=== PATIENT | male | born 1955 | race Caucasian/White ===

== ENCOUNTER 2019-02-05 15:32 | Inpatient (IN) | payer MEDICAID ==
[2019-02-05 16:21] LABS: % BASOPHILS 1.1 % (0.0-2.0); % EOSINOPHILS 1.8 % (0.0-5.0); % LYMPHOCYTES 30.4 % (20.0-50.0); % NEUTROPHILS 60.7 % (40.0-80.0); BASOPHILE ABSOLUTE 0.1 Th/cumm (0-0.2); EOSINOPHILE ABSOLUTE 0.1 Th/cmm (0.1-0.4); HEMOGLOBIN 13.4 gm/dL (12-16); LYMPHOCYTE ABSOLUTE 2.1 Th/cmm (1.5-3.0); MEAN CELL VOLUME 93.3 fl (80-99); MEAN CORPUSCULAR HGB CONC 34.3 pg (28.0-36.0); MONOCYTE ABSOLUTE 0.4 Th/cmm (0.3-1.0); NEUTROPHILE ABSOLUTE 4.1 Th/cmm (1.8-8.0); PLATELET COUNT 163 Th/cmm (150-400); RED BLOOD COUNT 4.18 Mil/cmm (4.30-5.70); RED CELL DISTRIBUTION WIDTH 14.5 % (11.5-20.0); WHITE BLOOD COUNT 6.8 Th/cmm (4.8-10.8)
[2019-02-05 16:30] LABS: INR 0.94 (0.5-1.4)
[2019-02-05 16:34] LABS: ALB/GLOB RATIO 1.2 (1.0-1.8); ALBUMIN 3.8 gm/dL (4.2-5.5); ALKALINE PHOSPHATASE 78 U/L (34-104); ANION GAP 10.1 (7.0-16.0); BILIRUBIN,TOTAL 0.3 mg/dL (0.3-1.0); BUN - UREA NITROGEN 14 mg/dL (7-25); CALCIUM SERUM 9.6 mg/dL (8.6-10.3); CARBON DIOXIDE 27.8 mEq/L (21.0-31.0); CHLORIDE 102 mEq/L (98-107); CREATININE - SERUM 0.9 mg/dL (0.7-1.3); CREATININE KINASE 93 U/L (30-223); GFR AFRICAN-AMERICAN > 60.0 ml/min (>90); GFR NON AFRICAN-AMERICAN > 60.0 ml/min; GLUCOSE 123 mg/dL (70-105); POTASSIUM SERUM 3.9 mEq/L (3.5-5.1); SGOT 19 U/L (13-39); SGPT/ALT 22 U/L (7-52); SODIUM SERUM 136 mEq/L (136-145)
--- NOTE | 2019-02-05 16:59 | ED Physician Chart ---
ED Chief Complaint/HPI - Patient Information Date Seen:: 02/05/19 Time Seen:: 15:50 Chief Complaint:: Redness History of Present Illness:: onset x 3 days of left thigh redness and swelling; pt's last tetanus shot: > 5 years; pt denies trauma, H/As, neck pain, cough, C/P, SOB, Abd. Pain, or urinary s/s Allergies:: Allergies Allergy/AdvReac Type Severity Reaction Status Date / Time No Known Allergies Allergy Verified 02/05/19 15:50 Vitals:: Vital Signs - 8 hr 02/05/19 02/05/19 15:50 16:19 Temp 97.8 F 97.8 F HR 76 72 RR 16 19 BP 124/87 110/82 O2 Sat % 97 97 Historian:: Patient, EMS Review:: Nurse's Note Reviewed, Old Chart Reviewed, EMS run form Reviewed ED Review of Systems - Review of Systems General/Constitutional: No fever, No chills, No weight loss, No weakness, No diaphoresis, No edema, No loss of appetite Skin: No skin lesions, No rash, No bruising Head: No headache, No light-headedness Eyes: No loss of vision, No pain, No diplopia ENT: No earache, No nasal drainage, No sore throat, No tinnitus Neck: No neck pain, No swelling, No thyromegaly, No stiffness, No mass noted Cardio Vascular: No chest pain, No palpitations, No PND, No orthopnea, No edema Pulmonary: No SOB, No cough, No sputum, No wheezing GI: No nausea, No vomiting, No diarrhea, No pain, No melena, No hematochezia, No constipation, No hematemesis G/U: No dysuria, No frequency, No hematuria, No nacturia Musculoskeletal: No bone or joint pain, No back pain, No muscle pain Endocrine: No polyuria, No polydipsia Psychiatric: No prior psych history, No depression, No anxiety, No suicidal ideation, No homicidal ideation, No auditory hallucination, No visual hallucination Hematopoietic: No bruising, No lymphadenopathy Allergic/Immuno: No urticaria, No angioedema Neurological: No syncope, No focal symptoms, No weakness, No paresthesia, No headache, No seizure, No dizziness, No confusion, No vertigo ED Past Medical History - Past Medical History Obtainable: Yes Past Medical History: HTN, Asthma/COPD, Dyslipidemia, PUD/GERD, Thyroid disorder Family History: HTN Social History: Non Smoker, No Alcohol, No Drug Use, Single, Care Facility Surgical History: None Psychiatricy History: None Medication: Reviewed Family Medical History - Family Member Mother History Unknown: Yes ED Physical Exam - Physical Examination General/Constitutional: Awake, Well-developed, well-nourished, Alert, No distress, GCS 15, Non-toxic appearing, Ambulatory Head: Atraumatic Eyes: Lids, conjuctiva normal, PERRL, EOMI Skin: Nl inspection, No rash, No skin lesions, No ecchymosis, Well hydrated, No lymphadenopathy Other Skin comments:: + Left Thigh Abscess, Ulceration, and Cellulitis; good NV functions; no FBs ENMT: External ears, nose nl, TM canals nl, Nasal exam nl, Lips, teeth, gums nl , Oropharynx nl, Tonsils nl Neck: Nontender, Full ROM w/o pain, No JVD, No nuchal rigidity, No bruit, No mass, No stridor Respiratory: Nl effort/Exclusion, Clear to Auscultation, No Wheeze/Rhonchi/Rales Cardio Vascular: RRR, No murmur, gallop, rubs, NL S1 S2, Carotid/Femoral/Distal pulses equal bilaterally GI: No tenderness/rebounding/guarding, No organomegaly, No hernia, Normal BS's, Nondistended, No mass/bruits, No McBurney tenderness, Rectum exam nl : No CVA tenderness Extremities: No tenderness or effusion, Full ROM, normal strength in all extremities, No edema, Normal digits & nails Neuro/Psych: Alert/oriented, DTR's symmetric, Normal sensory exam, Normal motor strength, Judgement/insight normal, Mood normal, Normal gait, No focal deficits Misc: Normal back, No paraspinal tenderness ED Labs/Radiology/EKG Results - Lab Results Results: Laboratory Tests 02/05/19 02/05/19 02/05/19 16:10 16:10 16:10 WBC 6.8 RBC 4.18 L Hgb 13.4 Hct 39.0 L MCV 93.3 MCH 32.0 H MCHC Differential 34.3 RDW 14.5 Plt Count 163 MPV 8.2 Neutrophils % 60.7 Lymphocytes % 30.4 Monocytes % 6.0 Eosinophils % 1.8 Basophils % 1.1 PT 9.8 INR 0.94 PTT (Actin FS) 26.0 Sodium 136 Potassium 3.9 Chloride 102 Carbon Dioxide 27.8 Anion Gap 10.1 BUN 14 Creatinine 0.9 Est GFR ( Amer) > 60.0 Est GFR (Non-Af Amer) > 60.0 BUN/Creatinine Ratio 15.6 Glucose 123 H Whole Bld Lactic Acid Calcium 9.6 Total Bilirubin 0.3 AST 19 ALT 22 Alkaline Phosphatase 78 Creatine Kinase 93 Total Protein 7.0 Albumin 3.8 L Globulin 3.2 Albumin/Globulin Ratio 1.2 02/05/19 16:10 WBC RBC Hgb Hct MCV MCH MCHC Differential RDW Plt Count MPV Neutrophils % Lymphocytes % Monocytes % Eosinophils % Basophils % PT INR PTT (Actin FS) Sodium Potassium Chloride Carbon Dioxide Anion Gap BUN Creatinine Est GFR ( Amer) Est GFR (Non-Af Amer) BUN/Creatinine Ratio Glucose Whole Bld Lactic Acid 1.46 Calcium Total Bilirubin AST ALT Alkaline Phosphatase Creatine Kinase Total Protein Albumin Globulin Albumin/Globulin Ratio Comments:: Reviewed ED Septic Shock - . Is Septic Shock (SBP<90, OR Lactate>4 mmol\L) present?: No - <6hrs of presentation: Vital Signs: Vital Signs - 8 hr 02/05/19 02/05/19 15:50 16:19 Temp 97.8 F 97.8 F HR 76 72 RR 16 19 BP 124/87 110/82 O2 Sat % 97 97 ED Reassessment (Disposition) - Reassessment Reassessment Condition:: Improved - Diagnosis Diagnosis:: Left Thigh Abscess, Ulcerations; Cellulitis; Hypoalbuminemia; HTN; HLD; Sepsis - Aftercare/Follow up Instructions Aftercare/Follow-Up Instructions:: Counseled pt regarding lab results/diagnosis & need follow up, Counseled pt & family regarding lab results/diagnosis & need follow up - Patient Disposition Discharge/Transfer:: Acute Care w/in this hosp Accepting Physician:: Dr. Mathews Time Called:: 1629 Time Responded:: 16:30 Admitted to:: Med/Surg Spoke to:: Dr. Mathews Admitting Medical Physician:: Dr. Mathews Condition at Disposition:: Stable, Improved
[2019-02-05 19:23] VITALS: BP 119/78
[2019-02-05] MEDS ORDERED: Acetaminophen 500 MG TAB PO PRN (21:08)
[2019-02-06 04:28] LABS: EOSINOPHILE ABSOLUTE 0.2 Th/cmm (0.1-0.4); MONOCYTE ABSOLUTE 0.4 Th/cmm (0.3-1.0); PLATELET COUNT 148 Th/cmm (150-400)
[2019-02-06 04:45] LABS: % BASOPHILS 1.2 % (0.0-2.0); % EOSINOPHILS 2.8 % (0.0-5.0); % LYMPHOCYTES 34.6 % (20.0-50.0); % NEUTROPHILS 55.4 % (40.0-80.0); BASOPHILE ABSOLUTE 0.1 Th/cumm (0-0.2); HEMATOCRIT 39.6 % (41.0-60); HEMOGLOBIN 13.2 gm/dL (12-16); LYMPHOCYTE ABSOLUTE 2.1 Th/cmm (1.5-3.0); MEAN CELL VOLUME 95.1 fl (80-99); MEAN CORPUSCULAR HEMOGLOBIN 31.7 pg (26.0-30.0); MEAN CORPUSCULAR HGB CONC 33.4 pg (28.0-36.0); NEUTROPHILE ABSOLUTE 3.4 Th/cmm (1.8-8.0); RED BLOOD COUNT 4.16 Mil/cmm (4.30-5.70); RED CELL DISTRIBUTION WIDTH 14.8 % (11.5-20.0); WHITE BLOOD COUNT 6.2 Th/cmm (4.8-10.8)
[2019-02-06 05:15] LABS: ALB/GLOB RATIO 1.2 (1.0-1.8); ALBUMIN 3.4 gm/dL (4.2-5.5); ALKALINE PHOSPHATASE 80 U/L (34-104); ANION GAP 11.8 (7.0-16.0); BILIRUBIN,TOTAL 0.3 mg/dL (0.3-1.0); BUN - UREA NITROGEN 14 mg/dL (7-25); CALCIUM SERUM 9.2 mg/dL (8.6-10.3); CARBON DIOXIDE 25.2 mEq/L (21.0-31.0); CHLORIDE 107 mEq/L (98-107); CREATININE - SERUM 0.8 mg/dL (0.7-1.3); GFR AFRICAN-AMERICAN > 60.0 ml/min (>90); GFR NON AFRICAN-AMERICAN > 60.0 ml/min; GLUCOSE 95 mg/dL (70-105); SGOT 18 U/L (13-39); SGPT/ALT 20 U/L (7-52); SODIUM SERUM 140 mEq/L (136-145); TOTAL PROTEIN,SERUM 6.3 gm/dL (6.0-8.3)
[2019-02-06] MEDS: Atorvastatin Calcium 10 MG TAB PO SCH (09:07)
[2019-02-06] MEDS: Calcitonin (Salmon) 200 Iu/Actuation 3.7mL NS SCH (09:08)
[2019-02-06] MEDS: Levothyroxine 0.1 Mg Tab PO SCH (09:13)
[2019-02-06] MEDS: Pantoprazole 40 mg EC Tab PO SCH (09:13)
--- NOTE | 2019-02-06 10:00 | Consultation ---
Consult Note - Consult Note Service Date: 02/06/19 Referring Physician: Srinivas Mathews Consult Note: PHYSICIAN Consultation Note: Date of Admission: 02/05/19 Purpose of Consultation: Left thigh abscess Chief Complaint: Patient KEYLA BURK was admitted to location Medical/ Surgical Unit I with LEFT SKIN ABSCESS. History of Present Illness: 63-year-old male with a past medical history of Hypertension, asthma, COPD, dyslipidemia, peptic ulcer disease, GERD, thyroid disorders presented to the ER for left thigh painful swelling for last 3 days. On initial evaluation, his temperature was 97.8F and WBC count was 6800. Vancomycin IV was started. ID consult was called for further antibiotic management. Surgical consultation was called Past Medical History: Hypertension, asthma, COPD, dyslipidemia, peptic ulcer disease, GERD, thyroid disorders. Family History: HTN. Social History: Non Smoker, No Alcohol, No Drug Use, Single, Care Facility. Surgical History: None. Psychiatricy History: None. Medication: Reviewed Allergies Allergy/AdvReac Type Severity Reaction Status Date / Time No Known Allergies Allergy Verified 02/05/19 15:50 Vital Signs Temp 96.5 F 02/06/19 08:00 Pulse 64 02/06/19 09:07 Resp 19 02/06/19 08:00 BP 111/73 02/06/19 09:07 Pulse Ox 93 02/06/19 08:00 Intake & Output 02/05/19 02/06/19 02/06/19 18:59 06:59 18:59 Intake Total 200 120 Output Total 0 Balance 200 120 Weight (lbs) 76.657 kg 76.657 kg Intake: Oral 200 120 Output: Stool 0 Other: # Voids 2 # Bowel Movements 0 Stool Characteristics Soft Formed Weight Source Bedscale Bedscale Laboratory Results - last 24 hr 02/05/19 02/05/19 02/05/19 16:10 16:10 16:10 WBC 6.8 RBC 4.18 L Hgb 13.4 Hct 39.0 L MCV 93.3 MCH 32.0 H MCHC Differential 34.3 RDW 14.5 Plt Count 163 MPV 8.2 Neutrophils % 60.7 Lymphocytes % 30.4 Monocytes % 6.0 Eosinophils % 1.8 Basophils % 1.1 PT 9.8 INR 0.94 PTT (Actin FS) 26.0 Sodium 136 Potassium 3.9 Chloride 102 Carbon Dioxide 27.8 Anion Gap 10.1 BUN 14 Creatinine 0.9 Est GFR ( Amer) > 60.0 Est GFR (Non-Af Amer) > 60.0 BUN/Creatinine Ratio 15.6 Glucose 123 H Whole Bld Lactic Acid Calcium 9.6 Total Bilirubin 0.3 AST 19 ALT 22 Alkaline Phosphatase 78 Creatine Kinase 93 Troponin I Total Protein 7.0 Albumin 3.8 L Globulin 3.2 Albumin/Globulin Ratio 1.2 02/05/19 02/06/19 02/06/19 16:10 04:10 04:10 WBC 6.2 RBC 4.16 L Hgb 13.2 Hct 39.6 L MCV 95.1 MCH 31.7 H MCHC Differential 33.4 RDW 14.8 Plt Count 148 L MPV 8.3 Neutrophils % 55.4 Lymphocytes % 34.6 Monocytes % 6.0 Eosinophils % 2.8 Basophils % 1.2 PT INR PTT (Actin FS) Sodium 140 Potassium 4.0 Chloride 107 Carbon Dioxide 25.2 Anion Gap 11.8 BUN 14 Creatinine 0.8 Est GFR ( Amer) > 60.0 Est GFR (Non-Af Amer) > 60.0 BUN/Creatinine Ratio 17.5 Glucose 95 Whole Bld Lactic Acid 1.46 Calcium 9.2 Total Bilirubin 0.3 AST 18 ALT 20 Alkaline Phosphatase 80 Creatine Kinase Troponin I 0.01 Total Protein 6.3 Albumin 3.4 L Globulin 2.9 Albumin/Globulin Ratio 1.2 Home Medication Medication Instructions Recorded Type Acetaminophen [Tylenol Extra 2 tab PO Q6H PRN 02/05/19 History Strength] Albuterol Sulfate [Proair 2 puff IH TID 02/05/19 History Respiclick] Aspirin [Lo-Dose Aspirin EC] 81 mg PO DAILY 02/05/19 History Atorvastatin Calcium [Lipitor] 10 mg PO DAILY 02/05/19 History Calcitonin ([place]) [Miacalcin] 200 iu NS DAILY 02/05/19 History Calcium Carbonate [Oyster Shell 500 mg PO BID 02/05/19 History Calcium] Ipratropium [place] [Atrovent Hfa] 2 puff INH QID 02/05/19 History Levothyroxine Sodium [Levoxyl] 100 mcg PO DAILY 02/05/19 History Metoprolol Tartrate [Lopressor] 25 mg PO BID 02/05/19 History Naproxen 500 mg PO Q12H PRN 02/05/19 History OLANZapine [ZyPREXA] 2 tab PO HS 02/05/19 History Pantoprazole Sodium [Protonix] 40 mg PO DAILY 02/05/19 History Thiamine [Vitamin B1] 100 mg PO DAILY 02/05/19 History Current Medications Generic Name Dose Route Start Last Admin Trade Name Freq PRN Reason Stop Dose Admin Acetaminophen 1,000 mg 02/05/19 21:08 Tylenol Extra Strength PO 04/06/19 21:07 Q6H PRN Pain (Moderate) Albuterol Sulfate 2.5 mg 02/06/19 15:00 Albuterol 2.5mg/3ml Neb Ud HHN 04/07/19 14:59 TIDRT TOMMY Aspirin 81 mg 02/06/19 09:00 02/06/19 09:07 Ecotrin PO 04/07/19 08:59 81 mg DAILY TOMMY Administration Atorvastatin Calcium 10 mg 02/06/19 09:00 02/06/19 09:07 Lipitor PO 04/07/19 08:59 10 mg DAILY TOMMY Administration Protocol Calcitonin [place] 200 iu 02/06/19 09:00 02/06/19 09:08 Miacalcin NS 04/07/19 08:59 200 iu DAILY TOMMY Administration Calcium Carbonate 500 mg 02/06/19 09:00 02/06/19 09:07 Os-Abner PO 04/07/19 08:59 500 mg BID TOMMY Administration Vancomycin HCl 1.25 gm/ Sodium 250 mls @ 165 mls/hr 02/06/19 09:00 02/06/19 09:15 Chloride IV 04/07/19 08:59 165 mls/hr Q12H TOMMY Administration Ipratropium [place] 0.5 mg 02/06/19 11:00 Atrovent Neb 0.5mg/2.5ml N 04/07/19 10:59 QIDRT TOMMY Levothyroxine Sodium 0.1 mg 02/06/19 07:30 02/06/19 09:13 Synthroid PO 04/07/19 07:29 0.1 mg QDAC TOMMY Administration Metoprolol Tartrate 25 mg 02/06/19 09:00 02/06/19 09:07 Lopressor PO 04/07/19 08:59 25 mg BID TOMMY Administration Miscellaneous 1 ea 02/06/19 09:00 Vancomycin Iv Per Pharmacy 04/07/19 08:59 DAILY TOMMY Naproxen 500 mg 02/05/19 21:09 Naprosyn PO 04/06/19 21:08 Q12H PRN Pain (Mild) Olanzapine 30 mg 02/06/19 21:00 Zyprexa PO 04/07/19 20:59 HS TOMMY Protocol Pantoprazole Sodium 40 mg 02/06/19 07:30 02/06/19 09:13 Protonix PO 04/07/19 07:29 40 mg QDAC TOMMY Administration Thiamine HCl 100 mg 02/06/19 09:00 02/06/19 09:07 Vitamin B1 PO 04/07/19 08:59 100 mg DAILY TOMMY Administration Review of Systems: A 12 point ROS was reviewed with the pertinent positive and negatives noted in the HPI. General/Constitutional: No fever, No chills, No weight loss, No weakness, No diaphoresis, No edema, No loss of appetite Skin: No skin lesions, No rash, No bruising Head: No headache, No light-headedness Eyes: No loss of vision, No pain, No diplopia ENT: No earache, No nasal drainage, No sore throat, No tinnitus Neck: No neck pain, No swelling, No thyromegaly, No stiffness, No mass noted Cardio Vascular: No chest pain, No palpitations, No PND, No orthopnea, No edema Pulmonary: No SOB, No cough, No sputum, No wheezing GI: No nausea, No vomiting, No diarrhea, No pain, No melena, No hematochezia, No constipation, No hematemesis G/U: No dysuria, No frequency, No hematuria, No nacturia Musculoskeletal: No bone or joint pain, No back pain, No muscle pain,. This painful abscess in back of the left thigh. Endocrine: No polyuria, No polydipsia Psychiatric: No prior psych history, No depression, No anxiety, No suicidal ideation, No homicidal ideation, No auditory hallucination, No visual hallucination Hematopoietic: No bruising, No lymphadenopathy Allergic/Immuno: No urticaria, No angioedema Neurological: No syncope, No focal symptoms, No weakness, No paresthesia, No headache, No seizure, No dizziness, No confusion, No vertigo Physical Exam: General: Comfortable and not in acute distress. HEENT: Head: Normocephalic, atraumatic. Oral cavity: Moist, pink tongue. Eyes : No pedal, no icterus. The pupils. EOMI. Neck: Supple, no JVD. No use of accessory neck muscles. Cardio: S1 and S2 within normal limits. No murmur no gallop. Respiratory: Vesicular breath sound. No crackles or wheezing no rhonchi. Abdominal: Soft, nontender, nondistended, bowel sounds present. Genital/Urinary: Deferred. Extremities: No cyanosis no clubbing no edema. Left thigh: Posteriorly, just distal to gluteal area, there is a large pustule with open wound draining pus and has necrotic slough with surrounding painful erythema. Neurological: Alert, awake and oriented 3. Assessment: 1. Left thigh abscess. Cellulitis. Likely MRSA infection. 2. Hypertension. 3. Asthma, COPD. 4. Dyslipidemia. 5. Peptic ulcer disease, GERD. 6. Thyroid disorder. Hypothyroidism. Plan: Continue vancomycin IV. Surgical consultation called. Thank you, Dr. Mathews, for involving me in taking care of this patient. Signed, Samson Govea M.D. [id number]
[2019-02-06] MEDS ORDERED: Ipratropium Neb 0.5 mg/2.5 mL UD HHN SCH (11:00)
[2019-02-06 11:13] LABS: URINE SOURCE CLEAN C
[2019-02-06 11:23] LABS: URINE BILIRUBIN NEGATIVE (NEGATIVE); URINE BLOOD NEGATIVE (NEGATIVE); URINE GLUCOSE (UA) NEGATIVE (NEGATIVE); URINE KETONE NEGATIVE (NEGATIVE); URINE LEUKOCYTE ESTERASE NEGATIVE (NEGATIVE); URINE NITRATE NEGATIVE (NEGATIVE); URINE PH 6.5 (4.6 - 8.0); URINE PROTEIN NEGATIVE (NEGATIVE); URINE UROBILINOGEN 0.2 E.U./dL (0.2 - 1.0)
[2019-02-06 11:28] LABS: URINE CLARITY CLEAR (CLEAR); URINE COLOR YELLOW; URINE MICROSCOPIC INDICATED? NO
--- NOTE | 2019-02-06 11:41 | History and Physical ---
History of Present Illness - HPI Chief Complaint: 63 y/o male patient was brought into ER due to Left thigh abscess. HPI: 63 y/o male patient was admitted to [facility] due to Left thigh abscess. Patient has history for Hypertension, Asthma, Copd, Dyslipidemia, Peptic ulcer disease, Gerd and Thyroid disorder. Patient had an ER assessment and a complete workup was done. Patient was diagnosed with Left thigh abcess. Cellulitis, likely MRSA infection , Hypertension, Asthma, Copd, Dyslipidemia, Peptic ulcer disease, Gerd, Thyroid disorder and Hypothyroidism. Patient will have an ID consult for further Antibiotic management and Surgical consult was also ordered. I will follow, treat and monitor patient. Patient will continue Vancomycin IV and current treatment plan an ordered. Vital Signs: Last Vital Signs Temp 96.5 F 02/06/19 08:00 Pulse 64 02/06/19 09:07 Resp 19 02/06/19 08:00 BP 111/73 02/06/19 09:07 Pulse Ox 93 02/06/19 08:00 Past Medical History Cardiovascular: Report: HTN Pulmonary: Report: Asthma, COPD [employer]UM [employer]INTER: Report: No Pertinent Hx GI: Report: GERD, Peptic Ulcer Psych: Report: No Pertinent Hx Musculoskeletal: Report: Other (Left thigh; Posteriorly, just distal to gluteal area there is a large pustule with open wound draining pus and has necrotic slough with surrounding painful erythema.) Rheumatologic: Report: No pertinent Hx Infectious Disease: Report: No Pertinent Hx Renal/: Report: No Pertinent Hx Endocrine: Report: Hypothyroidism Dermatology: Report: Cellulitis - Past Surgical History Past Surgical History: No pertinent Hx Family Medical History - Family Member Mother History Unknown: Yes Social History Smoke: No Alcohol: None Drugs: None Lives: [place] Domestic Violence: Negative Health Maintenance Health Maintenance: Other (see orders.) - Medications Home Medications: Home Medication Medication Instructions Recorded Type Acetaminophen [Tylenol Extra 2 tab PO Q6H PRN 02/05/19 History Strength] Albuterol Sulfate [Proair 2 puff IH TID 02/05/19 History Respiclick] Aspirin [Lo-Dose Aspirin EC] 81 mg PO DAILY 02/05/19 History Atorvastatin Calcium [Lipitor] 10 mg PO DAILY 02/05/19 History Calcitonin ([place]) [Miacalcin] 200 iu NS DAILY 02/05/19 History Calcium Carbonate [Oyster Shell 500 mg PO BID 02/05/19 History Calcium] Ipratropium [place] [Atrovent Hfa] 2 puff INH QID 02/05/19 History Levothyroxine Sodium [Levoxyl] 100 mcg PO DAILY 02/05/19 History Metoprolol Tartrate [Lopressor] 25 mg PO BID 02/05/19 History Naproxen 500 mg PO Q12H PRN 02/05/19 History OLANZapine [ZyPREXA] 2 tab PO HS 02/05/19 History Pantoprazole Sodium [Protonix] 40 mg PO DAILY 02/05/19 History Thiamine [Vitamin B1] 100 mg PO DAILY 02/05/19 History Other Medications: Please see medication reconciliation sheet. - Allergies Allergies/Adverse Reactions: Allergies Allergy/AdvReac Type Severity Reaction Status Date / Time No Known Allergies Allergy Verified 02/05/19 15:50 Review of Systems - Review of Systems Review of Systems: 63 y/o male patient has cellulitus of left thigh. Constitutional: Report: Weakness Eyes: Report: No Significant ENT: Report: No Significant Respiratory: Report: No Significant Cardiovascular: Report: No Significant Gastrointestinal: Report: No Significant Genitourinary: Report: No Significant Musculoskeletal: Report: Other (left thigh pain/cellultis.) Skin: Report: Other (Left thigh cellulitis.) Neurological: Report: Weakness Physical Exam - Physical Exam HEENT: Report: Ears Nose Throat within normal limits Neck: Report: Within normal limits Cardiovascular Systems: Report: +s1/s2 noted, Regular, Rate and Rhythm Respiratory: Report: Breath Sounds are within normal limits Abdomen: Report: Non-tender to palpation Back: Report: Inspection of back is within normal limits. Extremities: Report: Other (Left thgh abcess/cellulitis/pain.) Skin: Report: A wound was noted Neuro/Psych: Report: Mood affect is within normal limits - Lab Results All Lab Results last 24 hours: Laboratory Results - last 24 hr 02/05/19 02/05/19 02/05/19 16:10 16:10 16:10 WBC 6.8 RBC 4.18 L Hgb 13.4 Hct 39.0 L MCV 93.3 MCH 32.0 H MCHC Differential 34.3 RDW 14.5 Plt Count 163 MPV 8.2 Neutrophils % 60.7 Lymphocytes % 30.4 Monocytes % 6.0 Eosinophils % 1.8 Basophils % 1.1 PT 9.8 INR 0.94 PTT (Actin FS) 26.0 Sodium 136 Potassium 3.9 Chloride 102 Carbon Dioxide 27.8 Anion Gap 10.1 BUN 14 Creatinine 0.9 Est GFR ( Amer) > 60.0 Est GFR (Non-Af Amer) > 60.0 BUN/Creatinine Ratio 15.6 Glucose 123 H Whole Bld Lactic Acid Calcium 9.6 Total Bilirubin 0.3 AST 19 ALT 22 Alkaline Phosphatase 78 Creatine Kinase 93 Troponin I Total Protein 7.0 Albumin 3.8 L Globulin 3.2 Albumin/Globulin Ratio 1.2 Urine Source Urine Color Urine Clarity Urine pH Ur Specific [place] Urine Protein Urine Glucose (UA) Urine Ketones Urine Blood Urine Nitrate Urine Bilirubin Urine Urobilinogen Ur Leukocyte Esterase 02/05/19 02/06/19 02/06/19 16:10 04:10 04:10 WBC 6.2 RBC 4.16 L Hgb 13.2 Hct 39.6 L MCV 95.1 MCH 31.7 H MCHC Differential 33.4 RDW 14.8 Plt Count 148 L MPV 8.3 Neutrophils % 55.4 Lymphocytes % 34.6 Monocytes % 6.0 Eosinophils % 2.8 Basophils % 1.2 PT INR PTT (Actin FS) Sodium 140 Potassium 4.0 Chloride 107 Carbon Dioxide 25.2 Anion Gap 11.8 BUN 14 Creatinine 0.8 Est GFR ( Amer) > 60.0 Est GFR (Non-Af Amer) > 60.0 BUN/Creatinine Ratio 17.5 Glucose 95 Whole Bld Lactic Acid 1.46 Calcium 9.2 Total Bilirubin 0.3 AST 18 ALT 20 Alkaline Phosphatase 80 Creatine Kinase Troponin I 0.01 Total Protein 6.3 Albumin 3.4 L Globulin 2.9 Albumin/Globulin Ratio 1.2 Urine Source Urine Color Urine Clarity Urine pH Ur Specific [place] Urine Protein Urine Glucose (UA) Urine Ketones Urine Blood Urine Nitrate Urine Bilirubin Urine Urobilinogen Ur Leukocyte Esterase 02/06/19 10:30 WBC RBC Hgb Hct MCV MCH MCHC Differential RDW Plt Count MPV Neutrophils % Lymphocytes % Monocytes % Eosinophils % Basophils % PT INR PTT (Actin FS) Sodium Potassium Chloride Carbon Dioxide Anion Gap BUN Creatinine Est GFR ( Amer) Est GFR (Non-Af Amer) BUN/Creatinine Ratio Glucose Whole Bld Lactic Acid Calcium Total Bilirubin AST ALT Alkaline Phosphatase Creatine Kinase Troponin I Total Protein Albumin Globulin Albumin/Globulin Ratio Urine Source CLEAN C Urine Color YELLOW Urine Clarity CLEAR Urine pH 6.5 Ur Specific [place] 1.015 Urine Protein NEGATIVE Urine Glucose (UA) NEGATIVE Urine Ketones NEGATIVE Urine Blood NEGATIVE Urine Nitrate NEGATIVE Urine Bilirubin NEGATIVE Urine Urobilinogen 0.2 Ur Leukocyte Esterase NEGATIVE - Assessment Assessment: Left thigh abscess. Cellulitis, likely MRSA infection. Hypertension. Asthma. Copd. Dyslipidemia. Peptic ulcer disease. Gerd. Thyroid disorder. Hypothyroidism. - Plan Plan: Continuation of care. ID consult and Surgical consult. Monitor Labs. Continue present meds as directed. Monitor vitals, Continue BP meds as directed. Monitor Diet/Nutritional support. Pain Management. Local skin care and Wound care. Physical therapy. Occupational therapy. Fall precaution, frequent nursing rounds, and as needed restraints to prevent fall. Safety precaution. Supportive care. Continue collaborating with consulting specialists, case management and nursing team. Will Monitor patient and continue current treatment plan as ordered.
[2019-02-06] MEDS ORDERED: Albuterol Nebulizer 2.5mg/3mL HHN SCH (15:00)
--- NOTE | 2019-02-06 22:38 | Consultation ---
Consult Note - Consult Note Service Date: 02/06/19 Referring Physician: Srinivas Mathews Consult Note: PHYSICIAN Consultation Note: Date of Admission: 02/05/19 Purpose of Consultation: Chief Complaint: History of Present Illness: Patient KEYLA BURK was admitted to [facility] I with LEFT SKIN ABSCESS. Past Medical History: Allergies Allergy/AdvReac Type Severity Reaction Status Date / Time No Known Allergies Allergy Verified 02/05/19 15:50 Vital Signs Temp 97.7 F 02/06/19 20:00 Pulse 56 02/06/19 20:00 Resp 20 02/06/19 20:00 BP 114/73 02/06/19 20:00 Pulse Ox 97 02/06/19 20:00 Intake & Output 02/06/19 02/06/19 02/07/19 06:59 18:59 06:59 Intake Total 120 750 Balance 120 750 Weight (lbs) 169 lb 169 lb Intake: Intake, IV Amount 250 Vancomycin HCl 1.25 gm In 250 Sodium Chloride 0.9% 250 ml @ 165 mls/hr IV Q12H [facility] Rx#:[id number] Oral 120 500 Other: # Voids 2 3 # Bowel Movements 0 1 Stool Characteristics Soft Soft Formed Formed [facility] Results - last 24 hr 02/06/19 02/06/19 02/06/19 04:10 04:10 10:30 WBC 6.2 RBC 4.16 L Hgb 13.2 Hct 39.6 L MCV 95.1 MCH 31.7 H MCHC Differential 33.4 RDW 14.8 Plt Count 148 L MPV 8.3 Neutrophils % 55.4 Lymphocytes % 34.6 Monocytes % 6.0 Eosinophils % 2.8 Basophils % 1.2 Sodium 140 Potassium 4.0 Chloride 107 Carbon Dioxide 25.2 Anion Gap 11.8 BUN 14 Creatinine 0.8 Est GFR ( Amer) > 60.0 Est GFR (Non-Af Amer) > 60.0 BUN/Creatinine Ratio 17.5 Glucose 95 Calcium 9.2 Total Bilirubin 0.3 AST 18 ALT 20 Alkaline Phosphatase 80 Total Protein 6.3 Albumin 3.4 L Globulin 2.9 Albumin/Globulin Ratio 1.2 Urine Source CLEAN C Urine Color YELLOW Urine Clarity CLEAR Urine pH 6.5 Ur Specific [place] 1.015 Urine Protein NEGATIVE Urine Glucose (UA) NEGATIVE Urine Ketones NEGATIVE Urine Blood NEGATIVE Urine Nitrate NEGATIVE Urine Bilirubin NEGATIVE Urine Urobilinogen 0.2 Ur Leukocyte Esterase NEGATIVE Home Medication Medication Instructions Recorded Type Acetaminophen [Tylenol Extra 2 tab PO Q6H PRN 02/05/19 History Strength] Albuterol Sulfate [Proair 2 puff IH TID 02/05/19 History Respiclick] Aspirin [Lo-Dose Aspirin EC] 81 mg PO DAILY 02/05/19 History Atorvastatin Calcium [Lipitor] 10 mg PO DAILY 02/05/19 History Calcitonin ([place]) [Miacalcin] 200 iu NS DAILY 02/05/19 History Calcium Carbonate [Oyster [place] 500 mg PO BID 02/05/19 History Calcium] Ipratropium [place] [Atrovent Hfa] 2 puff INH QID 02/05/19 History Levothyroxine Sodium [Levoxyl] 100 mcg PO DAILY 02/05/19 History Metoprolol Tartrate [Lopressor] 25 mg PO BID 02/05/19 History Naproxen 500 mg PO Q12H PRN 02/05/19 History OLANZapine [ZyPREXA] 2 tab PO HS 02/05/19 History Pantoprazole Sodium [Protonix] 40 mg PO DAILY 02/05/19 History Thiamine [Vitamin B1] 100 mg PO DAILY 02/05/19 History Current Medications Generic Name Dose Route Start Last Admin Trade Name Binq PRN Reason Stop Dose Admin Acetaminophen 1,000 mg 02/05/19 21:08 Tylenol Extra Strength PO 04/06/19 21:07 Q6H PRN Pain (Moderate) Albuterol Sulfate 2.5 mg 02/06/19 15:00 Albuterol 2.5mg/3ml Neb Ud HHN 04/07/19 14:59 TIDRT TOMMY Aspirin 81 mg 02/06/19 09:00 02/06/19 09:07 Ecotrin PO 04/07/19 08:59 81 mg DAILY TOMMY Administration Atorvastatin Calcium 10 mg 02/06/19 09:00 02/06/19 09:07 Lipitor PO 04/07/19 08:59 10 mg DAILY TOMMY Administration Protocol Calcitonin [place] 200 iu 02/06/19 09:00 02/06/19 09:08 Miacalcin NS 04/07/19 08:59 200 iu DAILY TOMMY Administration Calcium Carbonate 500 mg 02/06/19 09:00 02/06/19 17:26 Os-Abner PO 04/07/19 08:59 500 mg BID TOMMY Administration Vancomycin HCl 1.25 gm/ Sodium 250 mls @ 165 mls/hr 02/06/19 09:00 02/06/19 21:33 Chloride IV 04/07/19 08:59 165 mls/hr Q12H TOMMY Administration Ipratropium [place] 0.5 mg 02/06/19 11:00 Atrovent Neb 0.5mg/2.5ml HHN 04/07/19 10:59 QIDRT TOMMY Levothyroxine Sodium 0.1 mg 02/06/19 07:30 02/06/19 09:13 Synthroid PO 04/07/19 07:29 0.1 mg QDAC TOMMY Administration Metoprolol Tartrate 25 mg 02/06/19 09:00 02/06/19 17:26 Lopressor PO 04/07/19 08:59 25 mg BID TOMMY Administration Miscellaneous 1 ea 02/06/19 09:00 Vancomycin Iv Per Pharmacy 04/07/19 08:59 DAILY TOMMY Naproxen 500 mg 02/05/19 21:09 Naprosyn PO 04/06/19 21:08 Q12H PRN Pain (Mild) Olanzapine 30 mg 02/06/19 21:00 Zyprexa PO 04/07/19 20:59 HS TOMMY Protocol Pantoprazole Sodium 40 mg 02/06/19 07:30 02/06/19 09:13 Protonix PO 04/07/19 07:29 40 mg QDAC TOMMY Administration Thiamine HCl 100 mg 02/06/19 09:00 02/06/19 09:07 Vitamin B1 PO 04/07/19 08:59 100 mg DAILY TOMMY Administration Wound Care/Dressing Products 1 appl 02/07/19 09:00 Silvasorb TP 04/08/19 08:59 DAILY TOMMY Review of Systems: A 12 point ROS was reviewed with the pertinent positive and negatives noted in the HPI. Social History Smoking Status Current every day smoker Family Medical History Family Medical History Start: 02/05/19 17: 30 Freq: ONCE Status: Active Protocol: Document 02/05/19 17:30 IWONA (Rec: 02/05/19 18:14 IWONA [id number]) Family Medical History Mother History Unknown Yes Physical Exam: General: HEENT: Neck: Cardio: Respiratory: Abdominal: Genital/Urinary: Extremities: left hip abcess drained and packed adequately some edges are necrotic but well perfused at the borders continued packing and santyl will help heal this wound no need for flap closure at this time healing by secondary intention may be best at this time Neurological: Assessment: small opening of the left hip ulcer Plan: continue packing with iodoform gauze cleanse with saline as per wound care nurse Signed, Gonzalez Loza [id number]
[2019-02-07] MEDS: Levothyroxine 0.1 Mg Tab PO SCH (06:32)
[2019-02-07] MEDS: Pantoprazole 40 mg EC Tab PO SCH (06:32)
[2019-02-07] MEDS: Atorvastatin Calcium 10 MG TAB PO SCH (08:13)
[2019-02-07] MEDS: Silver Antimicrobial Wound Gel 0.25 oz Tube TP SCH (08:13)
[2019-02-07] MEDS: Calcitonin (Salmon) 200 Iu/Actuation 3.7mL NS SCH (08:19)
--- NOTE | 2019-02-07 08:49 | Infectious Disease Prog Note ---
Infectious Disease Subjective - Review of Systems Service Date: 02/07/19 Events since last encounter: I and D of the left thigh abscess was performed. No fever. Infectious Disease Objective - Results Result Diagrams: 02/06/19 04:10 02/06/19 04:10 Recent Labs: Laboratory Last Values WBC 6.2 Th/cmm (4.8-10.8) 02/06/19 04:10 RBC 4.16 Mil/cmm (4.30-5.70) L 02/06/19 04:10 Hgb 13.2 gm/dL (12-16) 02/06/19 04:10 Hct 39.6 % (41.0-60) L 02/06/19 04:10 MCV 95.1 fl (80-99) 02/06/19 04:10 MCH 31.7 pg (26.0-30.0) H 02/06/19 04:10 MCHC Differential 33.4 pg (28.0-36.0) 02/06/19 04:10 RDW 14.8 % (11.5-20.0) 02/06/19 04:10 Plt Count 148 Th/cmm (150-400) L 02/06/19 04:10 MPV 8.3 fl 02/06/19 04:10 Neutrophils % 55.4 % (40.0-80.0) 02/06/19 04:10 Lymphocytes % 34.6 % (20.0-50.0) 02/06/19 04:10 Monocytes % 6.0 % (2.0-10.0) 02/06/19 04:10 Eosinophils % 2.8 % (0.0-5.0) 02/06/19 04:10 Basophils % 1.2 % (0.0-2.0) 02/06/19 04:10 PT 9.8 SECONDS (9.5-11.5) 02/05/19 16:10 INR 0.94 (0.5-1.4) 02/05/19 16:10 PTT (Actin FS) 26.0 SECONDS (26.0-38.0) 02/05/19 16:10 Sodium 140 mEq/L (136-145) 02/06/19 04:10 Potassium 4.0 mEq/L (3.5-5.1) 02/06/19 04:10 Chloride 107 mEq/L (98-107) 02/06/19 04:10 Carbon Dioxide 25.2 mEq/L (21.0-31.0) 02/06/19 04:10 Anion Gap 11.8 (7.0-16.0) 02/06/19 04:10 BUN 14 mg/dL (7-25) 02/06/19 04:10 Creatinine 0.8 mg/dL (0.7-1.3) 02/06/19 04:10 Est GFR ( Amer) > 60.0 ml/min (>90) 02/06/19 04:10 Est GFR (Non-Af Amer) > 60.0 ml/min 02/06/19 04:10 BUN/Creatinine Ratio 17.5 02/06/19 04:10 Glucose 95 mg/dL (70-105) 02/06/19 04:10 Whole Bld Lactic Acid 1.46 mmol/L (0.60-1.99) 02/05/19 16:10 Calcium 9.2 mg/dL (8.6-10.3) 02/06/19 04:10 Total Bilirubin 0.3 mg/dL (0.3-1.0) 02/06/19 04:10 AST 18 U/L (13-39) 02/06/19 04:10 ALT 20 U/L (7-52) 02/06/19 04:10 Alkaline Phosphatase 80 U/L (34-104) 02/06/19 04:10 Creatine Kinase 93 U/L (30-223) 02/05/19 16:10 Troponin I 0.01 ng/mL (0.01-0.05) 02/05/19 16:10 Total Protein 6.3 gm/dL (6.0-8.3) 02/06/19 04:10 Albumin 3.4 gm/dL (4.2-5.5) L 02/06/19 04:10 Globulin 2.9 gm/dL 02/06/19 04:10 Albumin/Globulin Ratio 1.2 (1.0-1.8) 02/06/19 04:10 Urine Source CLEAN C 02/06/19 10:30 Urine Color YELLOW 02/06/19 10:30 Urine Clarity CLEAR (CLEAR) 02/06/19 10:30 Urine pH 6.5 (4.6 - 8.0) 02/06/19 10:30 Ur Specific [place] 1.015 (1.005-1.030) 02/06/19 10:30 Urine Protein NEGATIVE mg/dL (NEGATIVE) 02/06/19 10:30 Urine Glucose (UA) NEGATIVE mg/dL (NEGATIVE) 02/06/19 10:30 Urine Ketones NEGATIVE mg/dL (NEGATIVE) 02/06/19 10:30 Urine Blood NEGATIVE (NEGATIVE) 02/06/19 10:30 Urine Nitrate NEGATIVE (NEGATIVE) 02/06/19 10:30 Urine Bilirubin NEGATIVE (NEGATIVE) 02/06/19 10:30 Urine Urobilinogen 0.2 E.U./dL (0.2 - 1.0) 02/06/19 10:30 Ur Leukocyte Esterase NEGATIVE (NEGATIVE) 02/06/19 10:30 Vancomycin Trough 9.9 ug/mL (5-10) 02/07/19 08:00 - Physical Exam Vitals and I&O: Vital Signs Temp 98.0 F 02/07/19 08:00 Pulse 69 02/07/19 08:13 Resp 18 02/07/19 08:00 BP 116/75 02/07/19 08:13 Pulse Ox 95 02/07/19 08:00 Intake & Output 02/06/19 02/07/19 02/07/19 18:59 06:59 18:59 Intake Total 750 750 Balance 750 750 Weight (lbs) 76.657 kg 76.657 kg Intake: Intake, IV Amount 250 Vancomycin HCl 1.25 gm In 250 Sodium Chloride 0.9% 250 ml @ 165 mls/hr IV Q12H [facility] Rx#:[id number] Oral 500 750 Other: # Voids 3 2 # Bowel Movements 1 Stool Characteristics Soft Soft Formed Formed Weight Source Bedscale Bedscale Active Medications: Current Medications Acetaminophen (Tylenol Extra Strength) 1,000 mg PO Q6H PRN PRN Reason: Pain (Moderate) Stop: 04/06/19 21:07 Albuterol Sulfate (Albuterol 2.5mg/3ml Neb Ud) 2.5 mg HHN TIDRT [facility] Stop: 04/07/19 14:59 Aspirin (Ecotrin) 81 mg PO DAILY TOMMY Stop: 04/07/19 08:59 Last Admin: 02/07/19 08:13 Dose: 81 mg Atorvastatin Calcium (Lipitor) 10 mg PO DAILY [facility]; Protocol Stop: 04/07/19 08:59 Last Admin: 02/07/19 08:13 Dose: 10 mg Calcitonin [place] (Miacalcin) 200 iu NS DAILY TOMMY Stop: 04/07/19 08:59 Last Admin: 02/07/19 08:19 Dose: 200 iu Calcium Carbonate (Os-Abner) 500 mg PO BID TOMMY Stop: 04/07/19 08:59 Last Admin: 02/07/19 08:14 Dose: 500 mg Vancomycin HCl 1.25 gm/ Sodium (Chloride) 250 mls @ 165 mls/hr IV Q12H TOMMY Stop: 04/07/19 08:59 Last Admin: 02/06/19 21:33 Dose: 165 mls/hr Ipratropium [place] (Atrovent Neb 0.5mg/2.5ml) 0.5 mg HHN QIDRT [facility] Stop: 04/07/19 10:59 Levothyroxine Sodium (Synthroid) 0.1 mg PO QDAC [facility] Stop: 04/07/19 07:29 Last Admin: 02/07/19 06:32 Dose: 0.1 mg Metoprolol Tartrate (Lopressor) 25 mg PO BID [facility] Stop: 04/07/19 08:59 Last Admin: 02/07/19 08:13 Dose: 25 mg Miscellaneous (Vancomycin Iv Per Pharmacy) 1 ea MC DAILY [facility] Stop: 04/07/19 08:59 Naproxen (Naprosyn) 500 mg PO Q12H PRN PRN Reason: Pain (Mild) Stop: 04/06/19 21:08 Olanzapine (Zyprexa) 30 mg PO HS [facility]; Protocol Stop: 04/07/19 20:59 Pantoprazole Sodium (Protonix) 40 mg PO QDAC [facility] Stop: 04/07/19 07:29 Last Admin: 02/07/19 06:32 Dose: 40 mg Thiamine HCl (Vitamin B1) 100 mg PO DAILY [facility] Stop: 04/07/19 08:59 Last Admin: 02/07/19 08:14 Dose: 100 mg Wound Care/Dressing Products (Silvasorb) 1 appl TP DAILY [facility] Stop: 04/08/19 08:59 Last Admin: 02/07/19 08:13 Dose: 1 appl General: no acute distress, well developed, well nourished HEENT: atraumatic, normocephalic, PERRLA, EOMI, moist mucous membrane Neck: supple, no thyromegaly Cardiovascular: S1S2, regular Lungs: clear to auscultation bilaterally, clear to percussion Abdomen: soft, bowel sounds, no tender, no distended, no mass, no rebound Extremities: other (Left thigh swelling and erythema with I and Wound ppacked.) , no cyanosis, no clubbing, no edema Neurological: awake, alert, oriented Infectious Disease Assmt/Plan - Assessment Assessment: 1. Left thigh abscess. Cellulitis. Likely MRSA infection. 2. Hypertension. 3. Asthma, COPD. 4. Dyslipidemia. 5. Peptic ulcer disease, GERD. 6. Thyroid disorder. Hypothyroidism. 7. Status post I and D. - Plan Plan: Will continue vanco IV and depending on the culture report define final antibiotic therapy.
--- NOTE | 2019-02-07 12:42 | Internal Medicine Prog Note ---
Internal Medicine Subjective - Subjective Service Date: 02/07/19 Patient Complaints of:: other Internal Medicine Objective - Results Result Diagrams: 02/06/19 04:10 02/06/19 04:10 Recent Labs: Laboratory Last Values WBC 6.2 Th/cmm (4.8-10.8) 02/06/19 04:10 RBC 4.16 Mil/cmm (4.30-5.70) L 02/06/19 04:10 Hgb 13.2 gm/dL (12-16) 02/06/19 04:10 Hct 39.6 % (41.0-60) L 02/06/19 04:10 MCV 95.1 fl (80-99) 02/06/19 04:10 MCH 31.7 pg (26.0-30.0) H 02/06/19 04:10 MCHC Differential 33.4 pg (28.0-36.0) 02/06/19 04:10 RDW 14.8 % (11.5-20.0) 02/06/19 04:10 Plt Count 148 Th/cmm (150-400) L 02/06/19 04:10 MPV 8.3 fl 02/06/19 04:10 Neutrophils % 55.4 % (40.0-80.0) 02/06/19 04:10 Lymphocytes % 34.6 % (20.0-50.0) 02/06/19 04:10 Monocytes % 6.0 % (2.0-10.0) 02/06/19 04:10 Eosinophils % 2.8 % (0.0-5.0) 02/06/19 04:10 Basophils % 1.2 % (0.0-2.0) 02/06/19 04:10 PT 9.8 SECONDS (9.5-11.5) 02/05/19 16:10 INR 0.94 (0.5-1.4) 02/05/19 16:10 PTT (Actin FS) 26.0 SECONDS (26.0-38.0) 02/05/19 16:10 Sodium 140 mEq/L (136-145) 02/06/19 04:10 Potassium 4.0 mEq/L (3.5-5.1) 02/06/19 04:10 Chloride 107 mEq/L (98-107) 02/06/19 04:10 Carbon Dioxide 25.2 mEq/L (21.0-31.0) 02/06/19 04:10 Anion Gap 11.8 (7.0-16.0) 02/06/19 04:10 BUN 14 mg/dL (7-25) 02/06/19 04:10 Creatinine 0.8 mg/dL (0.7-1.3) 02/06/19 04:10 Est GFR ( Amer) > 60.0 ml/min (>90) 02/06/19 04:10 Est GFR (Non-Af Amer) > 60.0 ml/min 02/06/19 04:10 BUN/Creatinine Ratio 17.5 02/06/19 04:10 Glucose 95 mg/dL (70-105) 02/06/19 04:10 Whole Bld Lactic Acid 1.46 mmol/L (0.60-1.99) 02/05/19 16:10 Calcium 9.2 mg/dL (8.6-10.3) 02/06/19 04:10 Total Bilirubin 0.3 mg/dL (0.3-1.0) 02/06/19 04:10 AST 18 U/L (13-39) 02/06/19 04:10 ALT 20 U/L (7-52) 02/06/19 04:10 Alkaline Phosphatase 80 U/L (34-104) 02/06/19 04:10 Creatine Kinase 93 U/L (30-223) 02/05/19 16:10 Troponin I 0.01 ng/mL (0.01-0.05) 02/05/19 16:10 Total Protein 6.3 gm/dL (6.0-8.3) 02/06/19 04:10 Albumin 3.4 gm/dL (4.2-5.5) L 02/06/19 04:10 Globulin 2.9 gm/dL 02/06/19 04:10 Albumin/Globulin Ratio 1.2 (1.0-1.8) 02/06/19 04:10 Urine Source CLEAN C 02/06/19 10:30 Urine Color YELLOW 02/06/19 10:30 Urine Clarity CLEAR (CLEAR) 02/06/19 10:30 Urine pH 6.5 (4.6 - 8.0) 02/06/19 10:30 Ur Specific [place] 1.015 (1.005-1.030) 02/06/19 10:30 Urine Protein NEGATIVE mg/dL (NEGATIVE) 02/06/19 10:30 Urine Glucose (UA) NEGATIVE mg/dL (NEGATIVE) 02/06/19 10:30 Urine Ketones NEGATIVE mg/dL (NEGATIVE) 02/06/19 10:30 Urine Blood NEGATIVE (NEGATIVE) 02/06/19 10:30 Urine Nitrate NEGATIVE (NEGATIVE) 02/06/19 10:30 Urine Bilirubin NEGATIVE (NEGATIVE) 02/06/19 10:30 Urine Urobilinogen 0.2 E.U./dL (0.2 - 1.0) 02/06/19 10:30 Ur Leukocyte Esterase NEGATIVE (NEGATIVE) 02/06/19 10:30 Vancomycin Trough 9.9 ug/mL (5-10) 02/07/19 08:00 - Physical Exam Vitals and I&O: Vital Signs Temp 98.1 F 02/07/19 11:42 Pulse 72 02/07/19 11:42 Resp 18 02/07/19 11:42 BP 122/79 02/07/19 11:42 Pulse Ox 96 02/07/19 11:42 Intake & Output 02/06/19 02/07/19 02/07/19 18:59 06:59 18:59 Intake Total 750 1000 Balance 750 1000 Weight (lbs) 76.657 kg 76.657 kg Intake: Intake, IV Amount 250 250 Vancomycin HCl 1.25 gm In 250 250 Sodium Chloride 0.9% 250 ml @ 165 mls/hr IV Q12H [facility] Rx#:[id number] Oral 500 750 Other: # Voids 3 2 # Bowel Movements 1 Stool Characteristics Soft Soft Soft Formed Formed Formed Weight Source Bedscale Bedscale Active Medications: Current Medications Acetaminophen (Tylenol Extra Strength) 1,000 mg PO Q6H PRN PRN Reason: Pain (Moderate) Stop: 04/06/19 21:07 Albuterol Sulfate (Albuterol 2.5mg/3ml Neb Ud) 2.5 mg HHN TIDRT [facility] Stop: 04/07/19 14:59 Aspirin (Ecotrin) 81 mg PO DAILY [facility] Stop: 04/07/19 08:59 Last Admin: 02/07/19 08:13 Dose: 81 mg Atorvastatin Calcium (Lipitor) 10 mg PO DAILY [facility]; Protocol Stop: 04/07/19 08:59 Last Admin: 02/07/19 08:13 Dose: 10 mg Calcitonin [place] (Miacalcin) 200 iu NS DAILY [facility] Stop: 04/07/19 08:59 Last Admin: 02/07/19 08:19 Dose: 200 iu Calcium Carbonate (Os-Abner) 500 mg PO BID [facility] Stop: 04/07/19 08:59 Last Admin: 02/07/19 08:14 Dose: 500 mg Vancomycin HCl 1.25 gm/ Sodium (Chloride) 250 mls @ 165 mls/hr IV Q12H [facility] Stop: 04/07/19 08:59 Last Admin: 02/07/19 09:33 Dose: 165 mls/hr Ipratropium [place] (Atrovent Neb 0.5mg/2.5ml) 0.5 mg HHN QIDRT [facility] Stop: 04/07/19 10:59 Levothyroxine Sodium (Synthroid) 0.1 mg PO QDAC [facility] Stop: 04/07/19 07:29 Last Admin: 02/07/19 06:32 Dose: 0.1 mg Metoprolol Tartrate (Lopressor) 25 mg PO BID [facility] Stop: 04/07/19 08:59 Last Admin: 02/07/19 08:13 Dose: 25 mg Miscellaneous (Vancomycin Iv Per Pharmacy) 1 ea MC DAILY [facility] Stop: 04/07/19 08:59 Naproxen (Naprosyn) 500 mg PO Q12H PRN PRN Reason: Pain (Mild) Stop: 04/06/19 21:08 Olanzapine (Zyprexa) 30 mg PO HS [facility]; Protocol Stop: 04/07/19 20:59 Pantoprazole Sodium (Protonix) 40 mg PO QDAC [facility] Stop: 04/07/19 07:29 Last Admin: 02/07/19 06:32 Dose: 40 mg Thiamine HCl (Vitamin B1) 100 mg PO DAILY [facility] Stop: 04/07/19 08:59 Last Admin: 02/07/19 08:14 Dose: 100 mg Wound Care/Dressing Products (Silvasorb) 1 appl TP DAILY [facility] Stop: 04/08/19 08:59 Last Admin: 02/07/19 08:13 Dose: 1 appl Internal Medicine Assmt/Plan - Assessment Assessment: S/p I & D. Left thigh abscess. Cellulitis, likely MRSA infection. Hypertension. Asthma. Copd. Dyslipidemia. Peptic ulcer disease. Gerd. Thyroid disorder. Hypothyroidism. - Plan Plan: Continuation of care. ID consult and Surgical consult. Monitor Labs. Continue present meds as directed. Monitor vitals, Continue BP meds as directed. Monitor Diet/Nutritional support. Pain Management. Local skin care and Wound care. Physical therapy. Occupational therapy. Fall precaution, frequent nursing rounds, and as needed restraints to prevent fall. Safety precaution. Supportive care. Continue collaborating with consulting specialists, case management and nursing team. Will Monitor patient and continue present care management. Nutritional Asmnt/Malnutr-PDOC - Dietary Evaluation Malnutrition Findings (Please click <Entered> for more info): see orders.
[2019-02-08] MEDS: Pantoprazole 40 mg EC Tab PO SCH (06:34)
[2019-02-08] MEDS: Levothyroxine 0.1 Mg Tab PO SCH (06:34)
[2019-02-08] MEDS: Atorvastatin Calcium 10 MG TAB PO SCH (08:47)
[2019-02-08] MEDS: Silver Antimicrobial Wound Gel 0.25 oz Tube TP SCH (09:19)
--- NOTE | 2019-02-08 12:29 | Internal Medicine Prog Note ---
Internal Medicine Subjective - Subjective Service Date: 02/08/19 Patient seen and examined:: with staff Patient is:: awake Patient Complaints of:: other Per staff patient has:: tolerating meds Internal Medicine Objective - Results Result Diagrams: 02/06/19 04:10 02/06/19 04:10 Recent Labs: Laboratory Last Values WBC 6.2 Th/cmm (4.8-10.8) 02/06/19 04:10 RBC 4.16 Mil/cmm (4.30-5.70) L 02/06/19 04:10 Hgb 13.2 gm/dL (12-16) 02/06/19 04:10 Hct 39.6 % (41.0-60) L 02/06/19 04:10 MCV 95.1 fl (80-99) 02/06/19 04:10 MCH 31.7 pg (26.0-30.0) H 02/06/19 04:10 MCHC Differential 33.4 pg (28.0-36.0) 02/06/19 04:10 RDW 14.8 % (11.5-20.0) 02/06/19 04:10 Plt Count 148 Th/cmm (150-400) L 02/06/19 04:10 MPV 8.3 fl 02/06/19 04:10 Neutrophils % 55.4 % (40.0-80.0) 02/06/19 04:10 Lymphocytes % 34.6 % (20.0-50.0) 02/06/19 04:10 Monocytes % 6.0 % (2.0-10.0) 02/06/19 04:10 Eosinophils % 2.8 % (0.0-5.0) 02/06/19 04:10 Basophils % 1.2 % (0.0-2.0) 02/06/19 04:10 PT 9.8 SECONDS (9.5-11.5) 02/05/19 16:10 INR 0.94 (0.5-1.4) 02/05/19 16:10 PTT (Actin FS) 26.0 SECONDS (26.0-38.0) 02/05/19 16:10 Sodium 140 mEq/L (136-145) 02/06/19 04:10 Potassium 4.0 mEq/L (3.5-5.1) 02/06/19 04:10 Chloride 107 mEq/L (98-107) 02/06/19 04:10 Carbon Dioxide 25.2 mEq/L (21.0-31.0) 02/06/19 04:10 Anion Gap 11.8 (7.0-16.0) 02/06/19 04:10 BUN 14 mg/dL (7-25) 02/06/19 04:10 Creatinine 0.8 mg/dL (0.7-1.3) 02/06/19 04:10 Est GFR ( Amer) > 60.0 ml/min (>90) 02/06/19 04:10 Est GFR (Non-Af Amer) > 60.0 ml/min 02/06/19 04:10 BUN/Creatinine Ratio 17.5 02/06/19 04:10 Glucose 95 mg/dL (70-105) 02/06/19 04:10 Whole Bld Lactic Acid 1.46 mmol/L (0.60-1.99) 02/05/19 16:10 Calcium 9.2 mg/dL (8.6-10.3) 02/06/19 04:10 Total Bilirubin 0.3 mg/dL (0.3-1.0) 02/06/19 04:10 AST 18 U/L (13-39) 02/06/19 04:10 ALT 20 U/L (7-52) 02/06/19 04:10 Alkaline Phosphatase 80 U/L (34-104) 02/06/19 04:10 Creatine Kinase 93 U/L (30-223) 02/05/19 16:10 Troponin I 0.01 ng/mL (0.01-0.05) 02/05/19 16:10 Total Protein 6.3 gm/dL (6.0-8.3) 02/06/19 04:10 Albumin 3.4 gm/dL (4.2-5.5) L 02/06/19 04:10 Globulin 2.9 gm/dL 02/06/19 04:10 Albumin/Globulin Ratio 1.2 (1.0-1.8) 02/06/19 04:10 Urine Source CLEAN C 02/06/19 10:30 Urine Color YELLOW 02/06/19 10:30 Urine Clarity CLEAR (CLEAR) 02/06/19 10:30 Urine pH 6.5 (4.6 - 8.0) 02/06/19 10:30 Ur Specific [place] 1.015 (1.005-1.030) 02/06/19 10:30 Urine Protein NEGATIVE mg/dL (NEGATIVE) 02/06/19 10:30 Urine Glucose (UA) NEGATIVE mg/dL (NEGATIVE) 02/06/19 10:30 Urine Ketones NEGATIVE mg/dL (NEGATIVE) 02/06/19 10:30 Urine Blood NEGATIVE (NEGATIVE) 02/06/19 10:30 Urine Nitrate NEGATIVE (NEGATIVE) 02/06/19 10:30 Urine Bilirubin NEGATIVE (NEGATIVE) 02/06/19 10:30 Urine Urobilinogen 0.2 E.U./dL (0.2 - 1.0) 02/06/19 10:30 Ur Leukocyte Esterase NEGATIVE (NEGATIVE) 02/06/19 10:30 Vancomycin Trough 9.9 ug/mL (5-10) 02/07/19 08:00 - Physical Exam Vitals and I&O: Vital Signs Temp 96.8 F 02/08/19 08:00 Pulse 56 02/08/19 08:47 Resp 18 02/08/19 08:00 BP 131/81 02/08/19 08:47 Pulse Ox 96 02/08/19 08:00 Intake & Output 02/07/19 02/08/19 02/08/19 18:59 06:59 18:59 Intake Total 1231 1250 Balance 1231 1250 Weight (lbs) 169 lb 169 lb Intake: Intake, IV Amount 250 250 Vancomycin HCl 1.25 gm In 250 250 Sodium Chloride 0.9% 250 ml @ 165 mls/hr IV Q12H [facility] Rx#:[id number] Oral 981 1000 Other: # Voids 2 1 # Bowel Movements 1 Stool Characteristics Soft Soft Soft Formed Formed Formed Weight Source Bedscale Bedscale Active Medications: Current Medications Acetaminophen (Tylenol Extra Strength) 1,000 mg PO Q6H PRN PRN Reason: Pain (Moderate) Stop: 04/06/19 21:07 Albuterol Sulfate (Albuterol 2.5mg/3ml Neb Ud) 2.5 mg HHN TIDRT [facility] Stop: 04/07/19 14:59 Aspirin (Ecotrin) 81 mg PO DAILY [facility] Stop: 04/07/19 08:59 Last Admin: 02/08/19 08:47 Dose: 81 mg Atorvastatin Calcium (Lipitor) 10 mg PO DAILY [facility]; Protocol Stop: 04/07/19 08:59 Last Admin: 02/08/19 08:47 Dose: 10 mg Calcitonin [place] (Miacalcin) 200 iu NS DAILY [facility] Stop: 04/07/19 08:59 Last Admin: 02/07/19 08:19 Dose: 200 iu Calcium Carbonate (Os-Abner) 500 mg PO BID [facility] Stop: 04/07/19 08:59 Last Admin: 02/08/19 08:47 Dose: 500 mg Vancomycin HCl 1.25 gm/ Sodium (Chloride) 250 mls @ 165 mls/hr IV Q12H [facility] Stop: 04/07/19 08:59 Last Admin: 02/08/19 09:19 Dose: 165 mls/hr Ipratropium [place] (Atrovent Neb 0.5mg/2.5ml) 0.5 mg HHN QIDRT [facility] Stop: 04/07/19 10:59 Levothyroxine Sodium (Synthroid) 0.1 mg PO QDAC [facility] Stop: 04/07/19 07:29 Last Admin: 02/08/19 06:34 Dose: 0.1 mg Metoprolol Tartrate (Lopressor) 25 mg PO BID [facility] Stop: 04/07/19 08:59 Last Admin: 02/08/19 08:47 Dose: Not Given Miscellaneous (Vancomycin Iv Per Pharmacy) 1 ea MC DAILY [facility] Stop: 04/07/19 08:59 Naproxen (Naprosyn) 500 mg PO Q12H PRN PRN Reason: Pain (Mild) Stop: 04/06/19 21:08 Olanzapine (Zyprexa) 30 mg PO HS [facility]; Protocol Stop: 04/07/19 20:59 Pantoprazole Sodium (Protonix) 40 mg PO QDAC [facility] Stop: 04/07/19 07:29 Last Admin: 02/08/19 06:34 Dose: 40 mg Thiamine HCl (Vitamin B1) 100 mg PO DAILY [facility] Stop: 04/07/19 08:59 Last Admin: 02/08/19 08:47 Dose: 100 mg Wound Care/Dressing Products (Silvasorb) 1 appl TP DAILY [facility] Stop: 04/08/19 08:59 Last Admin: 02/08/19 09:19 Dose: 1 appl General: alert HEENT: NC/AT, PERRLA Neck: Supple Lungs: CTAB Cardiovascular: RRR, Normal S1, Normal S2, without murmur Abdomen: soft, non-distended, positive bowel sound Extremities: excoriation Neurological: alert Internal Medicine Assmt/Plan - Assessment Assessment: S/p I & D. Left thigh abscess. Cellulitis, likely MRSA infection. Hypertension. Asthma. Copd. Dyslipidemia. Peptic ulcer disease. Gerd. Thyroid disorder. Hypothyroidism. - Plan Plan: continue ivabx as per ID am labs fall precautions continue current plan of care .
--- NOTE | 2019-02-08 14:03 | Infectious Disease Prog Note ---
Infectious Disease Subjective - Review of Systems Service Date: 02/08/19 Subjective: There is no new change, no fever. Infectious Disease Objective - Results Result Diagrams: 02/06/19 04:10 02/06/19 04:10 Recent Labs: Laboratory Last Values WBC 6.2 Th/cmm (4.8-10.8) 02/06/19 04:10 RBC 4.16 Mil/cmm (4.30-5.70) L 02/06/19 04:10 Hgb 13.2 gm/dL (12-16) 02/06/19 04:10 Hct 39.6 % (41.0-60) L 02/06/19 04:10 MCV 95.1 fl (80-99) 02/06/19 04:10 MCH 31.7 pg (26.0-30.0) H 02/06/19 04:10 MCHC Differential 33.4 pg (28.0-36.0) 02/06/19 04:10 RDW 14.8 % (11.5-20.0) 02/06/19 04:10 Plt Count 148 Th/cmm (150-400) L 02/06/19 04:10 MPV 8.3 fl 02/06/19 04:10 Neutrophils % 55.4 % (40.0-80.0) 02/06/19 04:10 Lymphocytes % 34.6 % (20.0-50.0) 02/06/19 04:10 Monocytes % 6.0 % (2.0-10.0) 02/06/19 04:10 Eosinophils % 2.8 % (0.0-5.0) 02/06/19 04:10 Basophils % 1.2 % (0.0-2.0) 02/06/19 04:10 PT 9.8 SECONDS (9.5-11.5) 02/05/19 16:10 INR 0.94 (0.5-1.4) 02/05/19 16:10 PTT (Actin FS) 26.0 SECONDS (26.0-38.0) 02/05/19 16:10 Sodium 140 mEq/L (136-145) 02/06/19 04:10 Potassium 4.0 mEq/L (3.5-5.1) 02/06/19 04:10 Chloride 107 mEq/L (98-107) 02/06/19 04:10 Carbon Dioxide 25.2 mEq/L (21.0-31.0) 02/06/19 04:10 Anion Gap 11.8 (7.0-16.0) 02/06/19 04:10 BUN 14 mg/dL (7-25) 02/06/19 04:10 Creatinine 0.8 mg/dL (0.7-1.3) 02/06/19 04:10 Est GFR ( Amer) > 60.0 ml/min (>90) 02/06/19 04:10 Est GFR (Non-Af Amer) > 60.0 ml/min 02/06/19 04:10 BUN/Creatinine Ratio 17.5 02/06/19 04:10 Glucose 95 mg/dL (70-105) 02/06/19 04:10 Whole Bld Lactic Acid 1.46 mmol/L (0.60-1.99) 02/05/19 16:10 Calcium 9.2 mg/dL (8.6-10.3) 02/06/19 04:10 Total Bilirubin 0.3 mg/dL (0.3-1.0) 02/06/19 04:10 AST 18 U/L (13-39) 02/06/19 04:10 ALT 20 U/L (7-52) 02/06/19 04:10 Alkaline Phosphatase 80 U/L (34-104) 02/06/19 04:10 Creatine Kinase 93 U/L (30-223) 02/05/19 16:10 Troponin I 0.01 ng/mL (0.01-0.05) 02/05/19 16:10 Total Protein 6.3 gm/dL (6.0-8.3) 02/06/19 04:10 Albumin 3.4 gm/dL (4.2-5.5) L 02/06/19 04:10 Globulin 2.9 gm/dL 02/06/19 04:10 Albumin/Globulin Ratio 1.2 (1.0-1.8) 02/06/19 04:10 Urine Source CLEAN C 02/06/19 10:30 Urine Color YELLOW 02/06/19 10:30 Urine Clarity CLEAR (CLEAR) 02/06/19 10:30 Urine pH 6.5 (4.6 - 8.0) 02/06/19 10:30 Ur Specific [place] 1.015 (1.005-1.030) 02/06/19 10:30 Urine Protein NEGATIVE mg/dL (NEGATIVE) 02/06/19 10:30 Urine Glucose (UA) NEGATIVE mg/dL (NEGATIVE) 02/06/19 10:30 Urine Ketones NEGATIVE mg/dL (NEGATIVE) 02/06/19 10:30 Urine Blood NEGATIVE (NEGATIVE) 02/06/19 10:30 Urine Nitrate NEGATIVE (NEGATIVE) 02/06/19 10:30 Urine Bilirubin NEGATIVE (NEGATIVE) 02/06/19 10:30 Urine Urobilinogen 0.2 E.U./dL (0.2 - 1.0) 02/06/19 10:30 Ur Leukocyte Esterase NEGATIVE (NEGATIVE) 02/06/19 10:30 Vancomycin Trough 9.9 ug/mL (5-10) 02/07/19 08:00 - Physical Exam Vitals and I&O: Vital Signs Temp 96.8 F 02/08/19 08:00 Pulse 56 02/08/19 08:47 Resp 18 02/08/19 08:00 BP 131/81 02/08/19 08:47 Pulse Ox 96 02/08/19 08:00 Intake & Output 02/07/19 02/08/19 02/08/19 18:59 06:59 18:59 Intake Total 1231 1250 Balance 1231 1250 Weight (lbs) 76.657 kg 76.657 kg Intake: Intake, IV Amount 250 250 Vancomycin HCl 1.25 gm In 250 250 Sodium Chloride 0.9% 250 ml @ 165 mls/hr IV Q12H [facility] Rx#:[id number] Oral 981 1000 Other: # Voids 2 1 # Bowel Movements 1 Stool Characteristics Soft Soft Soft Formed Formed Formed Weight Source Bedscale Bedscale Active Medications: Current Medications Acetaminophen (Tylenol Extra Strength) 1,000 mg PO Q6H PRN PRN Reason: Pain (Moderate) Stop: 04/06/19 21:07 Albuterol Sulfate (Albuterol 2.5mg/3ml Neb Ud) 2.5 mg HHN TIDRT [facility] Stop: 04/07/19 14:59 Aspirin (Ecotrin) 81 mg PO DAILY [facility] Stop: 04/07/19 08:59 Last Admin: 02/08/19 08:47 Dose: 81 mg Atorvastatin Calcium (Lipitor) 10 mg PO DAILY [facility]; Protocol Stop: 04/07/19 08:59 Last Admin: 02/08/19 08:47 Dose: 10 mg Calcitonin [place] (Miacalcin) 200 iu NS DAILY [facility] Stop: 04/07/19 08:59 Last Admin: 02/07/19 08:19 Dose: 200 iu Calcium Carbonate (Os-Abner) 500 mg PO BID [facility] Stop: 04/07/19 08:59 Last Admin: 02/08/19 08:47 Dose: 500 mg Vancomycin HCl 1.25 gm/ Sodium (Chloride) 250 mls @ 165 mls/hr IV Q12H [facility] Stop: 04/07/19 08:59 Last Admin: 02/08/19 09:19 Dose: 165 mls/hr Ipratropium [place] (Atrovent Neb 0.5mg/2.5ml) 0.5 mg HHN QIDRT [facility] Stop: 04/07/19 10:59 Levothyroxine Sodium (Synthroid) 0.1 mg PO QDAC [facility] Stop: 04/07/19 07:29 Last Admin: 02/08/19 06:34 Dose: 0.1 mg Metoprolol Tartrate (Lopressor) 25 mg PO BID [facility] Stop: 04/07/19 08:59 Last Admin: 02/08/19 08:47 Dose: Not Given Miscellaneous (Vancomycin Iv Per Pharmacy) 1 ea MC DAILY [facility] Stop: 04/07/19 08:59 Naproxen (Naprosyn) 500 mg PO Q12H PRN PRN Reason: Pain (Mild) Stop: 04/06/19 21:08 Olanzapine (Zyprexa) 30 mg PO HS [facility]; Protocol Stop: 04/07/19 20:59 Pantoprazole Sodium (Protonix) 40 mg PO QDAC [facility] Stop: 04/07/19 07:29 Last Admin: 02/08/19 06:34 Dose: 40 mg Thiamine HCl (Vitamin B1) 100 mg PO DAILY [facility] Stop: 04/07/19 08:59 Last Admin: 02/08/19 08:47 Dose: 100 mg Wound Care/Dressing Products (Silvasorb) 1 appl TP DAILY [facility] Stop: 04/08/19 08:59 Last Admin: 02/08/19 09:19 Dose: 1 appl General: no acute distress, well developed, well nourished HEENT: atraumatic, normocephalic, PERRLA, EOMI Neck: supple, no thyromegaly Cardiovascular: S1S2, regular Lungs: clear to auscultation bilaterally, clear to percussion Abdomen: soft, no tender, no distended Extremities: other (left thigh abscess, cellulitis.), no cyanosis, no clubbing , no edema Infectious Disease Assmt/Plan - Assessment Assessment: 1. Left thigh abscess. Cellulitis. Likely MRSA infection. 2. Hypertension. 3. Asthma, COPD. 4. Dyslipidemia. 5. Peptic ulcer disease, GERD. 6. Thyroid disorder. Hypothyroidism. 7. Status post I and D. - Plan Plan: Will continue vanco IV and depending on the culture report define final antibiotic therapy.
[2019-02-08] MEDS: Calcitonin (Salmon) 200 Iu/Actuation 3.7mL NS SCH (15:22)
== END 2019-02-08 19:05 | DRG 720 ==
LOC: ER 15:32 → MSI 17:00
PROVIDERS: ADMIT Internal Medicine; ATTEND Internal Medicine
PROC: 0H9JXZZ Drainage of Left Upper Leg Skin, External Approach (ICD-10-PCS; principal; 2019-02-06)
DX: A41.9 Sepsis, unspecified organism (principal); L02.416 Cutaneous abscess of left lower limb; B95.62 Methicillin resistant Staphylococcus aureus infection as the cause of diseases classified elsewhere; I10 Essential (primary) hypertension; J44.9 Chronic obstructive pulmonary disease, unspecified; E78.5 Hyperlipidemia, unspecified; K27.9 Peptic ulcer, site unspecified, unspecified as acute or chronic, without hemorrhage or perforation; K21.9 Gastro-esophageal reflux disease without esophagitis; E03.9 Hypothyroidism, unspecified; L03.116 Cellulitis of left lower limb; L98.499 Non-pressure chronic ulcer of skin of other sites with unspecified severity
CPT/HCPCS: 36415-UA; 80053-TC; 80202-TC; 81003-TC; 82550-TC; 83605; 84484-TC; 85025-TC; 85610-TC; 85730-TC; 87070-90; J0696; J3370; J7040; Z7610